=== PATIENT | female | born 1990 | race Two or more races ===

== ENCOUNTER 2024-03-03 18:58 | Emergency (ER) | payer OTHER ==
[2024-03-03 19:36] VITALS: BP 125/80; PULSE 60; RESP 14; TEMP 98; BMI 36.0
[2024-03-03] MEDS ORDERED: ACETAMINOPHEN INJECTION 100 ML IVPB ONE (20:10)
[2024-03-03] MEDS ORDERED: LIDOCAINE 4% PATCH TP ONE (20:10)
[2024-03-03] MEDS: LACTATED RINGERS SOLUTION 1000 ML INFUS.BAG IV ONE (20:48)
[2024-03-03] MEDS: LIDOCAINE 4% PATCH TP ONE (20:48)
[2024-03-03] MEDS: ACETAMINOPHEN 1000 MG/100 ML BAG IVPB ONE (20:49)
[2024-03-03 20:52] LABS: URINE APPEARANCE CLEAR; URINE BILIRUBIN NEGATIVE (NEGATIVE); URINE COLOR YELLOW; URINE GLUCOSE (UA) NEGATIVE (NEGATIVE); URINE KETONE NEGATIVE (NEGATIVE); URINE LEUK ESTERASE NEGATIVE (NEGATIVE); URINE NITRITE NEGATIVE (NEGATIVE); URINE PROTEIN NEGATIVE (NEGATIVE); URINE UROBILINOGEN 0.2 mg/dL (0.2-1.0)
[2024-03-03 21:20] LABS: BASO % 0.7 % (0-2.0); EOS % 2.2 % (0-4.5); HEMATOCRIT 38.3 % (32.4-45.2); HEMOGLOBIN 12.8 GM/dL (10.7-15.3); LYMPH % 40.4 % (8-40); MCH 30.1 pg (25.7-33.7); MCHC 33.5 g/dl (32.0-36.0); MEAN CELL VOLUME 89.8 fl (80-96); MEAN PLT VOLUME 10.3 fl (7.5-11.1); MONO % 7.3 % (3.8-10.2); NEUT % 49.4 % (42.8-82.8); PLATELET COUNT 162 10^3/uL (134-434); RBC 4.26 M/mm3 (3.60-5.2); RDW 14.2 % (11.6-15.6); WHITE BLOOD COUNT 6.9 K/mm3 (4.0-10.0)
[2024-03-03 21:48] LABS: POTASSIUM 5.4 mmol/L (3.5-5.1)
[2024-03-03 21:51] LABS: ALBUMIN 3.8 g/dl (3.4-5.0); BLOOD UREA NITROGEN 11.4 mg/dL (7-18)
[2024-03-03 21:53] LABS: CALCIUM 9.5 mg/dL (8.5-10.1)
[2024-03-03 21:54] LABS: CREATININE 0.8 mg/dL (0.55-1.3)
[2024-03-03 21:55] LABS: BILIRUBIN,TOTAL 0.6 mg/dL (0.2-1)
[2024-03-03] MEDS: LIDOCAINE PATCH REMOVAL MC SCH (22:02)
[2024-03-03 22:17] LABS: HIV INTERPRETATION NEGATIVE (NEGATIVE)
== END 2024-03-03 22:29 | disposition home or self-care (01) ==
LOC: JER 18:58
PROC: 3E033NZ Introduction of Analgesics, Hypnotics, Sedatives into Peripheral Vein, Percutaneous Approach (ICD-10-PCS; principal; 2024-03-03)
DX: R55 Syncope and collapse (principal); M54.2 Cervicalgia
CPT/HCPCS: 71045-TC-FY; 80053; 81003; 84703; 85025; 87077; 87086; 87389; 93005; 93010; 96374; 99285-25; J0131